=== PATIENT | female | born 1995 | race Caucasian/White ===

== ENCOUNTER 2022-05-23 12:24 | Emergency (ER) | payer BC, SELFPAY ==
[2022-05-23 12:33] VITALS: BP 112/80; PULSE 85; RESP 16; TEMP 36.9; O2SAT 100
[2022-05-23 12:35] VITALS: BP 112/80; PULSE 85; RESP 16; TEMP 36.9; O2SAT 100
--- NOTE | 2022-05-23 12:55 | ED.FEMALEGU ---
HPI - Female Genitourinary General Chief complaint: Urogenital-Female Stated complaint: vaginal bacteria Time Seen by Provider: 05/23/22 12:40 Source: patient Mode of arrival: ambulatory Limitations: no limitations History of Present Illness HPI Narrative: Patient presents today with yellow malodorous vaginal discharge x2 weeks. Denies dysuria, hematuria, or any additional urinary symptoms, abdominal pain. States she has no concerns for sexually transmitted infections and does not want to be tested here today. LMP was 3 weeks ago. States she has had a few episodes of bacterial vaginosis in the past and these symptoms are similar. Related Data Allergies Allergy/AdvReac Type Severity Reaction Status Date / Time cephalexin [From Keflex] Allergy Unknown Verified 05/23/22 12:35 Penicillins Allergy Unknown Verified 05/23/22 12:35 Review of Systems Review of Systems: CONSTITUTIONAL: Denies body aches, fever, chills, or sweats. EYES: Denies visual changes, redness, or discharge. ENT: Denies rhinorrhea, congestion, sore throat, or otalgia. CARDIOVASCULAR: Denies chest pain, palpitations, or edema. RESPIRATORY: Denies cough or dyspnea. GASTROINTESTINAL: Denies abdominal pain, nausea, vomiting, or diarrhea. GENITOURINARY: Denies dysuria or hematuria.+ Vaginal discharge SKIN: Denies rash, itching, or wounds. MUSCULOSKELETAL: Denies back pain, joint pain, or myalgia. NEUROLOGIC: Denies headache, numbness, tingling, or weakness. PSYCH: Denies depression or anxiety. PMFSH Comments At time of signature, I have reviewed and agree with nursing past medical, surgical, social and family history unless otherwise noted. Please see nursing chart for further information. There is no relevant family history pertinent to the presenting complaint Exam Narrative: GENERAL: Well-appearing, well-nourished, and in no acute distress. HEAD: Normocephalic, atraumatic. EYES: EOMI. No redness or drainage. Conjunctivae normal. ENT: Mucous membranes pink and moist. NECK: Normal AROM. CHEST: No respiratory distress. :Moderate amount of thick white yellow vaginal discharge within the vagina. Cervix appears normal. No CMT. EXTREMITIES: Normal range of motion. No edema. SKIN: Warm, dry, no rash. Capillary refill normal. Normal skin turgor. NEURO: No focal deficits. Alert and oriented x3. Gait steady. PSYCH: Normal affect. No signs of depression or anxiety. Course Course Level of Care: Express Care Visit Vital Signs Vital signs: Vital Signs Temperature 98.5 F 05/23/22 12:33 Pulse Rate 85 05/23/22 12:33 Respiratory Rate 16 05/23/22 12:33 Blood Pressure 112/80 05/23/22 12:33 Pulse Oximetry 100 05/23/22 12:33 Oxygen Delivery Room Air 05/23/22 12:33 Temperature 98.5 F 05/23/22 12:35 Pulse Rate 85 05/23/22 12:35 Respiratory Rate 16 05/23/22 12:35 Blood Pressure 112/80 05/23/22 12:35 Pulse Oximetry 100 05/23/22 12:35 Oxygen Delivery Room Air 05/23/22 12:35 Reviewed MDM - Female Genitourinary MDM Narrative Medical decision making narrative: Patient declines gonorrhea, chlamydia testing. We will send off wet prep. Differential Diagnosis Differential diagnosis: Likely urinary tract infection, bacterial vaginosis, trichomoniasis and other (Gonorrhea, chlamydia) Critical Care Time Critical Care Time Critical Care Time: No Discharge Plan Discharge Clinical Impression: Vaginal discharge Patient Disposition: Home, Self-Care Condition: Stable Instructions: Antibiotic Form, Bacterial Vaginosis (ED) Additional Instructions: Please take the Flagyl as directed. You will be notified by telephone of any positive results. If your symptoms do not resolve after the Flagyl, please follow-up with your [employer]. Patient Language: Bermud[place] Prescriptions: New metronidazole 500 mg tablet 500 mg PO Q12H 7 Days Qty: 14 0RF Follow-up/Referrals: UNKNOWN,DOCTOR [Primary Care Provider]
== END 2022-05-23 13:22 | disposition home or self-care (01) ==
PROVIDERS: Emergency Provider Nurse Practitioner
DX: N89.8 Other specified noninflammatory disorders of vagina (principal); I12.9 Hypertensive chronic kidney disease with stage 1 through stage 4 chronic kidney disease, or unspecified chronic kidney disease; N18.30 Chronic kidney disease, stage 3 unspecified
CPT/HCPCS: 87070; 99214; G0463

== ENCOUNTER 2023-06-06 10:11 | Emergency (ER) | payer OTHER, SELFPAY ==
[2023-06-06 10:28] VITALS: BP 153/98; PULSE 100; RESP 16; TEMP 36.6; O2SAT 100
--- NOTE | 2023-06-06 10:47 | ED.SKABFB ---
HPI - Skin/Abscess/Foreign Bdy General Chief complaint: Skin/Abscess/Foreign Body Stated complaint: rash Time Seen by Provider: 06/06/23 10:47 Source: patient Mode of arrival: ambulatory Limitations: no limitations History of Present Illness HPI narrative: 27 yo F presents with c/o erythematous vesicular itchy rash to face, neck, chest, bilatearl arms and legs for 3 days. also reports itching to buttocks where she believes she also may have poison jeny rash. started after clearing weeds from her yard. getting progressively worse. using OTC poison jeny ointments with no relief. all systems reviewed and negative except as noted above. Related Data Home Medications Medication Instructions Recorded Confirmed allopurinol 100 mg tablet 100 mg DIRECTED 06/06/23 06/06/23 amlodipine 10 mg tablet 10 mg DIRECTED 06/06/23 06/06/23 chlorthalidone 25 mg tablet 25 mg DIRECTED 06/06/23 06/06/23 hydroxychloroquine 200 mg tablet 200 mg PO DIRECTED 06/06/23 06/06/23 olmesartan 40 mg tablet 40 mg DIRECTED 06/06/23 06/06/23 Allergies Allergy/AdvReac Type Severity Reaction Status Date / Time cephalexin [From Keflex] Allergy Unknown Verified 05/23/22 12:35 Penicillins Allergy Unknown Verified 05/23/22 12:35 Review of Systems Review of Systems: CONSTITUTIONAL: Denies fever, chills, or sweats. EYES: Denies visual changes, redness, or discharge. ENT: Denies rhinorrhea, congestion, sore throat, or otalgia. CARDIOVASCULAR: Denies chest pain, palpitations, or edema. RESPIRATORY: Denies cough or dyspnea. GASTROINTESTINAL: Denies abdominal pain, nausea, vomiting, or diarrhea. GENITOURINARY: Denies dysuria or hematuria. SKIN: Reports rash and itching. MUSCULOSKELETAL: Denies back pain, joint pain, or myalgia. NEUROLOGIC: Denies headache, numbness, or weakness. PSYCHIATRIC: Denies anxiety or depression. All other systems reviewed are negative, except as documented in HPI. PMFSH Comments At time of signature, agree with nursing past medical, surgical, social and family history. There is no relevant family history pertinent to the presenting complaint. Exam Narrative: GENERAL: This is a well-nourished, well-developed patient, in no apparent distress. HEAD: normocephalic, atraumatic. EYES: PERRL. Sclera clear/white. Vision is grossly intact. EARS: External ears normal NOSE: External nose normal NECK: Neck supple, non-tender without lymphadenopathy, masses or thyromegaly. CARDIOVASCULAR: Regular rate and rhythm without murmurs, gallops, or rubs. RESPIRATORY: Clear to auscultation. Breath sounds equal bilaterally. No wheezes, rales, or rhonchi. SKIN: warm, Dry, intact, good texture and turgor. erythematous vesicular rash to bilateral cheeks, chin, neck, chest, bilateral arms and lower extremities. NEURO: awake, alert, and oriented to person, place and time. There were no obvious focal neurologic abnormalities. EXTREMITIES: No joint tenderness, effusion, or edema noted. Course Course Level of Care: Express Care Visit Vital Signs Vital signs: Vital Signs Temperature 36.6 C 06/06/23 10:28 Pulse Rate 100 06/06/23 10:28 Respiratory Rate 16 06/06/23 10:28 Blood Pressure 153/98 H 06/06/23 10:28 Pulse Oximetry 100 06/06/23 10:28 Oxygen Delivery Room Air 06/06/23 10:28 Temperature 36.6 C 06/06/23 10:28 Pulse Rate 100 06/06/23 10:28 Respiratory Rate 16 06/06/23 10:28 Blood Pressure 153/98 H 06/06/23 10:28 Pulse Oximetry 100 06/06/23 10:28 Oxygen Delivery Room Air 06/06/23 10:28 Reviewed MDM - Skin/Abscess/Foreign Bdy MDM Narrative Medical decision making narrative: Patient is aware of diagnosis, understands and agrees to treatment plan. Anticipatory guidance given. Patient agrees to follow-up as directed and is aware of reasons to seek care at the emergency department. Portions of this record may have been created with voice recognition software will treat
[2023-06-06] MEDS: TRIAMCINOLONE ACET INJ 40 MG/ML VIAL IM (11:07)
== END 2023-06-06 11:28 | disposition home or self-care (01) ==
PROVIDERS: Emergency Provider Nurse Practitioner Family
DX: L25.5 Unspecified contact dermatitis due to plants, except food (principal)
CPT/HCPCS: 96372; 99213; G0463; J3301

== ENCOUNTER 2023-06-08 17:52 | Emergency (ER) | payer OTHER, SELFPAY ==
[2023-06-08 18:21] VITALS: BP 159/121; PULSE 80; RESP 18; TEMP 36.6; O2SAT 100
--- NOTE | 2023-06-08 18:26 | ED.SKABFB ---
HPI - Skin/Abscess/Foreign Bdy General Chief complaint: Skin/Abscess/Foreign Body Stated complaint: rash Time Seen by Provider: 06/08/23 18:26 Source: patient, RN notes reviewed and old records reviewed Mode of arrival: ambulatory Limitations: no limitations History of Present Illness HPI narrative: 27-year-old female presents to the [facility] with complaints of a rash. Was evaluated on 06 of June and given a shot of Kenalog Patient states most of the rash to her face and leg are doing better however other rashes appeared, right lateral leg, erythema, swelling with drainage noted. Right volar aspect forearm warm, erythema, mild swelling Multiple rashes noted to bilateral wrists that were and groups of 3 vesicular. Linear rashes noted to thighs, arm. Onset (ago): day(s) Related Data Home Medications Medication Instructions Recorded Confirmed allopurinol 100 mg tablet 100 mg DIRECTED 06/06/23 06/08/23 amlodipine 10 mg tablet 10 mg DIRECTED 06/06/23 06/08/23 chlorthalidone 25 mg tablet 25 mg DIRECTED 06/06/23 06/08/23 hydroxychloroquine 200 mg tablet 200 mg PO DIRECTED 06/06/23 06/08/23 olmesartan 40 mg tablet 40 mg DIRECTED 06/06/23 06/08/23 Allergies Allergy/AdvReac Type Severity Reaction Status Date / Time cephalexin [From Keflex] Allergy Unknown Verified 06/08/23 18:21 Penicillins Allergy Unknown Verified 06/08/23 18:21 Review of Systems Review of Systems: All systems reviewed & are unremarkable except as noted in HPI and below Constitutional: Constitutional: Reports no additional constitutional complaints Eyes: Eyes: Reports no additional eye complaints ENT: Reports system reviewed and no additional complaints, except as documented Cardiovascular: Cardiovascular: Reports no additional cardiovascular complaints, Denies chest pain and Denies dyspnea Respiratory: Respiratory: Reports no additional respiratory complaints, Denies chest congestion, Denies cough and Denies dyspnea Gastrointestinal: Gastrointestinal: Reports no additional gastrointestinal complaints, Denies abdominal pain, Denies nausea and Denies vomiting Musculoskeletal: Musculoskeletal: Reports no additional musculoskeletal complaints Integumentary/Breasts: Skin/Breast: Reports as per HPI Neurologic: Reports system reviewed and no additional complaints, except as documented Psychiatric: Psychiatric: Reports no additional psychiatric complaints Allergic/Immunologic: Allergic/Immunologic: Reports no additional allergic/immunologic complaints PMFSH Past Medical History Medical History Chronic kidney disease Baseline creatinine per patient 1.8-2 Comments At the time of my signature, I reviewed and agree with the nursing past medical, surgical, social, and family history. There is no relevant family history pertinent to the patient complaint. Exam Const: General: cooperative, healthy appearing, comfortable, no acute distress, well developed, alert and well nourished Nutritional Appearance: well nourished Orientation/consciousness: patient oriented x3 Limitations: no limitations HENMT: Head: normal to inspection Ears: hearing grossly normal bilaterally and external ears normal Face/Nose/Sinus: Normal external nose present, Normal nares present, Normal nasal mucous membranes and turbinates present and normal facial exam Face and sinus: normal facial exam Mouth: Yes Normal oral and palatal mucosa present, Yes lip normal and Yes moist mucous membranes Throat: posterior oropharynx normal and uvula midline Eyes: General: appearance normal, both eyes and all related structures Alignment and Position: alignment normal Periorbital: periorbital findings normal Pupils: Equal, round and reactive pupils present EOM: EOMs intact bilaterally Neck: Neck: normal visual inspection, full ROM, no lymphadenopathy and no meningeal signs Chest: Chest palpation & inspection: normal insp
--- NOTE | 2023-06-17 16:36 | PC.NURSE ---
Called and checked on patient after being seen by this nurse and MARGY Solis 9 days ago at [facility] in [place], [place] for poison jeny rash. Patient reports that cellulitis on legs and forearm are improving greatly. Patient reports she is looking for a primary care provider currently and did have a follow up with her head of data this week. Patient has no questions or concerns at this time. Patient states she will call if she has any additional questions.
== END 2023-06-08 18:48 | disposition home or self-care (01) ==
PROVIDERS: Emergency Provider Nurse Practitioner
DX: L03.115 Cellulitis of right lower limb (principal); L03.113 Cellulitis of right upper limb; L25.9 Unspecified contact dermatitis, unspecified cause; I12.9 Hypertensive chronic kidney disease with stage 1 through stage 4 chronic kidney disease, or unspecified chronic kidney disease; N18.30 Chronic kidney disease, stage 3 unspecified
CPT/HCPCS: 99213; G0463